=== PATIENT | male | born 1965 | race Caucasian/White ===

== ENCOUNTER 2024-10-01 05:41 | Day surgery (SDC) | payer OTHER ==
[2024-09-30 10:19] VITALS: BMI 30.2
[2024-10-01 11:00] VITALS: TEMP 97.8
[2024-10-01 11:03] VITALS: RESP 16
[2024-10-01 11:09] VITALS: BP 107/69; PULSE 65
== END 2024-10-01 11:20 | disposition home or self-care (01) ==
LOC: JASU-ENDO 05:41
PROVIDERS: ATTEND Internal Medicine Gastroenterology
PROC: 0DJD8ZZ Inspection of Lower Intestinal Tract, Via Natural or Artificial Opening Endoscopic (ICD-10-PCS; principal; 2024-10-01 10:00)
DX: Z12.11 Encounter for screening for malignant neoplasm of colon (principal); K64.8 Other hemorrhoids; K57.30 Diverticulosis of large intestine without perforation or abscess without bleeding; Z86.0100 Personal history of colon polyps, unspecified; Z83.719 Family history of colon polyps, unspecified